=== PATIENT | male | born 1940 | race Caucasian/White ===

== ENCOUNTER → 2021-09-02 12:27 | Outpatient (BNVA) | payer MEDICARE, OTHER, SELFPAY | PROVIDERS: PCP Physician Assistant; Visit Provider Internal Medicine | DX: I25.10 Atherosclerotic heart disease of native coronary artery without angina pectoris (principal) | CPT/HCPCS: 93005; 99212 ==

== ENCOUNTER → 2022-08-17 09:08 | Outpatient (REF) | payer MEDICARE, OTHER, SELFPAY ==
--- NOTE | 2022-08-17 09:11 | CA_ITS ---
Transthoracic Echocardiogram Patient (Last, First, Middle): Todd Chinchilla, Gender: Male Date of : 1940 Age: 81 Procedure Date: 08/17/2022 Procedure Type: Transthoracic Echocardiogram Location: OP Height: 180.34 cm Weight: 81.65 kg BSA: 2.02 m2 Heart Rate: 88 bpm BP: 100 / 65 mmHg Dish Up Person: MARIIA Referring MD: Avery Andre MD Symptoms: I25.10 - Atherosclerotic heart disease of [place] coronary... Study Quality: Adequate ECG Rhythm: Atrial Fibrillation Conclusions: - The left ventricular systolic function is mildly decreased. The visually estimated ejection fraction is between 45-50%. - There is mild calcification of the aortic valve. - No obvious valvular pathology seen on this study. Findings Left Ventricle Normal left ventricular cavity size. The left ventricular systolic function is mildly decreased. The visually estimated ejection fraction is between 45 50%. Diastolic function is indeterminate on the basis of available data. There is mild septal and mild basal asymmetric hypertrophy. Right Ventricle Normal right ventricular cavity size. There is mildly decreased right ventricular systolic function. Atria Both atria are normal in size. Aortic Valve There is mild calcification of the aortic valve. There is no aortic valve stenosis. There is no aortic valve regurgitation. Mitral Valve The mitral valve appears normal. There is trace mitral valve regurgitation. There is no mitral valve stenosis. Pulmonic Valve The pulmonic valve is likely normal. Tricuspid Valve There is trace tricuspid valve regurgitation. There is no evidence of pulmonary hypertension. Great Vessels The asc aorta is normal in size. Venous The inferior vena cava is normal in size and collapses greater than 50% with inspiration. Pericardium/Pleural There is no evidence of pericardial effusion. Prior Study Comparison No prior study available for comparison. Recommendations, Care & Conclusions No obvious valvular pathology seen on this study. Measurements 2D Linear Measurements IVSd: 1.11 0.6-0.9/0.6-1.0 cm LVIDd: 4.52 3.9-5.3/4.2-5.9 cm LVIDd Index: 2.24 2.4-3.2/2.2-3.1 cm/m2 LVIDs: 3.41 2.0-3.6 cm LVPWd: 0.85 0.7-1.1 cm LA Diam: 3.40 2.7-3.8/3.0-4.0 cm LAIDs Index: 1.68 1.5-2.3 cm/m2 LV Mass: 187.34 67-162/88-224 g LV Mass Index: 92.74 43-95/49-115 g/m2 LVOT Diam: 2.00 3.0+(-)1.3 cm 2D Systolic Function EF 4C: 54.40 >55% EF 2C: 38.20 >55% EF BiP: 47.50 >55% Mitral Valve MV Pk E: 0.69 MV Decel Time: 227.00 PHT: 66.00 MVA PHT: 3.33 Decel Rawlins: 3.02 Aortic Valve AoV Pk Tao: 0.87 AoV Mn Tao: 0.63 AoV VTI: 0.14 AoV Pk Grad: 3.00 Aov Mn Grad: 2.00 EMILIANA Cont.VTI: 2.92 LVOT LVOT Pk Tao: 0.70 LVOT Mn Tao: 0.48 LVOT VTI: 0.13 LVOT Pk Grad: 2.00 LVOT Mn Grad: 1.00 LVOT Diam: 2.00 LVOT Area: 3.14 Diastolic Function MV Pk E: 0.69 Right Ventricle TAPSE (mm): 13.50 TVS' Tao: 10.10 Tricuspid Valve TR Pk Tao: 1.63 TR Pk Grad: 11.00 RA Press: 3.00 RVSP: 14.00 Great Vessels Aorta Sinus of Valsalva: 3.50 2.0-3.5 cm Ao Asc: 3.70 2.1-3.4 cm Pulmonary Valve PV Pk Tao: 0.87 Peak PV Grad: 3.00 Updated in Other Vendor System with Status of Final Avery Andre MD electronically signed on 08/18/2022 11:13:48 AM with status of Final
== END ==
LOC: HO.CARD 09:08
PROVIDERS: PCP Family Medicine; Visit Provider Internal Medicine
DX: I25.10 Atherosclerotic heart disease of native coronary artery without angina pectoris (principal)
CPT/HCPCS: 93306

== ENCOUNTER → 2022-08-25 07:13 | Outpatient (REF) | payer MEDICARE, OTHER, SELFPAY ==
--- NOTE | 2022-08-25 07:15 | HM_ITS ---
* Total monitoring time 3 days and 6 hours. * Underlying rhythm is sinus and atrial fibrillation. About 39% the time, rhythm was atrial fibrillation. * While in atrial fibrillation, rapid rates up to 152/Min. Otherwise, minimum rate 52/Min. * No significant pauses heart blocks. * Occasional ventricular ectopy. * No symptoms in dairy. MTDD
== END ==
LOC: HO.CARD 07:13
PROVIDERS: PCP Family Medicine; Visit Provider Internal Medicine
DX: I48.91 Unspecified atrial fibrillation (principal)
CPT/HCPCS: 93242

== ENCOUNTER 2022-09-07 13:05 | Outpatient (REF) | payer MEDICARE, OTHER, SELFPAY ==
[2022-09-07 14:33] LABS: Hematocrit 39.3 % (42.0-52.0); Hemoglobin 12.7 g/dl (14.0-18.0); Mean Corpuscular HGB Conc 32.3 g/dl (31.0-36.0); Mean Corpuscular Hemoglobin 32.2 pg (27.0-33.0); Mean Corpuscular Volume 99.5 fL (80.0-98.0); Mean Platelet Volume 10.6 fL (9.4-12.4); Platelet Count 298 X10*3/uL (160-400); Red Blood Count 3.95 X10*6/uL (4.60-5.80); Red Cell Distribution Width 12.7 % (11.0-16.0); White Blood Count 5.7 X10*3/uL (4.8-10.8)
[2022-09-07 14:37] LABS: Prothrombin Time 11.4 SEC (10.0-13.1)
[2022-09-07 14:53] LABS: Alanine Aminotransferase 21 U/L (0-40); Albumin Level 4.3 g/dL (3.5-5.0); Alkaline Phosphatase 59 U/L (39-117); Anion Gap 12 (12-20); Aspartate Amino Transferase 24 U/L (5-37); Bilirubin Total 0.5 mg/dL (0.0-1.0); Blood Urea Nitrogen 15 mg/dL (9-16); Calcium 9.2 mg/dL (8.4-10.2); Carbon Dioxide 28 mmol/L (22-29); Chloride 104 mmol/L (96-108); Estimated Glomerular Filt Rate > 60; Glucose Random 80 mg/dL (60-115); Potassium 4.3 mmol/L (3.3-5.1); Sodium 140 mmol/L (135-145); Total Protein 6.4 g/dL (6.5-8.0)
== END 2022-09-07 13:06 | disposition home or self-care (01) ==
LOC: HO.LAB 13:05
PROVIDERS: PCP Family Medicine; Visit Provider Internal Medicine
DX: I48.0 Paroxysmal atrial fibrillation (principal); I42.9 Cardiomyopathy, unspecified; I25.10 Atherosclerotic heart disease of native coronary artery without angina pectoris; Z79.899 Other long term (current) drug therapy
CPT/HCPCS: 36415; 80053; 85027; 85610; 93005; 99212

== ENCOUNTER → 2022-10-29 10:39 | Outpatient (REF) | payer MEDICARE, OTHER, SELFPAY ==
--- NOTE | 2022-10-29 10:43 | HM_ITS ---
Conclusion: 1. Patient was monitor for total period of 3 days and 2 hours 2. Baseline was normal sinus rhythm with average heart of 65 beats per minute 3. No significant pauses or bradycardia noted 4. Total of 1905 PVCs accounting for 0.70 % of total beats accounting for occasional PVCs 5. Total of 391 PACs account for occasional PACs 6. No significant tachyarrhythmias noted 7. No patient reported events MTDD
== END ==
LOC: HO.CARD 10:39
PROVIDERS: Visit Provider Internal Medicine
DX: I48.0 Paroxysmal atrial fibrillation (principal)
CPT/HCPCS: 93242

== ENCOUNTER → 2022-12-14 12:16 | Outpatient (BNVA) | payer MEDICARE, OTHER, SELFPAY | PROVIDERS: PCP Family Medicine; Referring Provider Family Medicine; Visit Provider Internal Medicine | DX: I25.10 Atherosclerotic heart disease of native coronary artery without angina pectoris (principal); I48.0 Paroxysmal atrial fibrillation; I42.9 Cardiomyopathy, unspecified; Z79.01 Long term (current) use of anticoagulants; Z79.899 Other long term (current) drug therapy | CPT/HCPCS: 99212 ==

== ENCOUNTER → 2023-05-23 07:39 | Outpatient (REF) | payer MEDICARE, OTHER, SELFPAY ==
--- NOTE | ~2023-05-23 | NM_ITS ---
EXERCISE MYOCARDIAL PERFUSION STUDY INDICATION: Coronary disease, assess for ischemia TECHNIQUE: The patient was brought in for an exercise perfusion study on 05/23/2023. Patient performed exercise as per Urban protocol and was injected 30 mCi of sestamibi once target heart rate was achieved. Images were obtained using the SPECT gamma camera interlaced with the gating device. Images were obtained in supine position. Resting perfusion study was performed on 05/26/2023. Patient was administered 30 mCi of sestamibi intravenously at rest. Images were then obtained in supine position. Images were processed with the software and compared side to side in short axis, horizontal long axis and vertical long axis views. Total DLP 72mGy-cm. FINDINGS: Raw images were reviewed. The stress perfusion study showed no significant perfusion abnormality. Both uncorrected as well as CT attenuation corrected images were reviewed. Gating not performed during stress due to question of atrial fibrillation. Resting study shows no significant perfusion abnormality. Gating at rest reveals normal wall motion with ejection fraction at 64%. The findings are consistent with no clear reversible or fixed perfusion defects. KS/KS cardiolite stress test IMPRESSION: 1. Myocardial perfusion imaging study shows likely normal myocardial perfusion. 2. Gated LVEF is 64% during rest. Gating not performed during stress due to atrial fibrillation. EKG component of the test reported separately.
--- NOTE | 2023-05-23 07:42 | CA_ITS ---
Acquisition Time: 2023-05-23 08:47:49 Total Exercise Time: 00:09:48 Test Indications: CAD AFIB Medications: ELIQUIS ATORVASTATIN METOPROLOL Protocol: RADHIKA Max HR: 148 BPM 105% of Pred: 140 BPM Max BP: 154/054 mmHG Max Work Load: 11.4 METS Exercise stress test exercise 9 min 48 sec of Radhika protocol achieving 100% MPHR, mild SOB, no chest discomfort, with isolated PVCs, with normotensive response to exercise, with EKG changes that meet criteria for ischemia: V4-V6. Nuclear images pending. Test reviewed with Dr. Andre. Referred By: Avery Andre Overread By: MELANIE MEYER
--- NOTE | 2023-05-23 07:42 | HM_ITS ---
* Total monitoring time 3 days. * Underlying rhythm is sinus. Average ventricular rate 65/Min. Range 52 to 93/Min. * Occasional supraventricular ventricular ectopy with minimal burden. * Mobitz type 1 second-degree heart block noted. Nighttime as well as during the day. * No significant pauses greater than 2.5 seconds. * No patient markers or events in diary. MTDD
--- NOTE | 2023-05-23 07:42 | CA_ITS ---
Transthoracic Echocardiogram Amended Patient (Last, First, Middle): Todd Chinchilla, Gender: Male Date of : 1940 Age: 82 Procedure Date: 05/23/2023 Procedure Type: Transthoracic Echocardiogram Location: OP Height: 182.88 cm Weight: 81.65 kg BSA: 2.04 m2 Heart Rate: 54 bpm BP: 90 / 60 mmHg Bulb Weeder: MARIIA Referring MD: Avery Andre MD Symptoms: I42.9 - Cardiomyopathy, unspecified Study Quality: Adequate ECG Rhythm: Bradycardia Conclusions: - The left ventricular systolic function is low normal. The visually estimated ejection fraction is between 50-55%. - No obvious valvular pathology seen on this study. Findings Left Ventricle Normal left ventricular cavity size. The left ventricular systolic function is low normal. The visually estimated ejection fraction is between 50-55%. There is no evidence of regional wall motion abnormalities. Diastolic function is normal for age. There is mild septal asymmetric hypertrophy. LV peak GLS -20.2%. Right Ventricle Normal right ventricular cavity size and systolic function. Atria Both atria are normal in size. Aortic Valve There is mild calcification of the aortic valve. There is no aortic valve stenosis. There is no aortic valve regurgitation. Mitral Valve The mitral valve appears normal. There is mild mitral annular calcification. There is trace mitral valve regurgitation. There is no mitral valve stenosis. Pulmonic Valve The pulmonic valve is likely normal. Tricuspid Valve Normal tricuspid valve structure. There is no tricuspid valve regurgitation. There is no evidence of pulmonary hypertension. Great Vessels The asc aorta is normal in size. Venous The inferior vena cava is normal in size and collapses greater than 50% with inspiration. Pericardium/Pleural There is no evidence of pericardial effusion. Prior Study Comparison Changes noted compared to prior study dated: 08/17/2022. see comment on wall motion. Recommendations, Care & Conclusions No obvious valvular pathology seen on this study. Measurements 2D Linear Measurements IVSd: 1.09 0.6-0.9/0.6-1.0 cm LVIDd: 4.53 3.9-5.3/4.2-5.9 cm LVIDd Index: 2.22 2.4-3.2/2.2-3.1 cm/m2 LVIDs: 3.30 2.0-3.6 cm LVPWd: 0.92 0.7-1.1 cm LA Diam: 3.70 2.7-3.8/3.0-4.0 cm LAIDs Index: 1.81 1.5-2.3 cm/m2 LV Mass: 194.37 67-162/88-224 g LV Mass Index: 95.28 43-95/49-115 g/m2 LVOT Diam: 2.00 3.0+(-)1.3 cm 2D Volumes LA Vol: 20.50 2D Systolic Function EF 4C: 55.60 >55% EF 2C: 64.80 >55% EF BiP: 59.30 >55% Mitral Valve MV Pk E: 0.59 MV PK A: 0.48 MV Decel Time: 196.00 E/A: 1.20 E'Lateral: 9.57 E'Medial: 5.66 E/E' Med: 10.40 E/E' Lat: 6.10 PHT: 57.00 MVA PHT: 3.86 Decel Buchanan: 3.00 Aortic Valve AoV Pk Tao: 1.18 AoV Mn Tao: 0.87 AoV VTI: 0.31 AoV Pk Grad: 6.00 Aov Mn Grad: 3.00 EMILIANA Cont.VTI: 2.07 LVOT LVOT Pk Tao: 0.79 LVOT Mn Tao: 0.60 LVOT VTI: 0.21 LVOT Pk Grad: 2.00 LVOT Mn Grad: 2.00 LVOT Diam: 2.00 LVOT Area: 3.14 Diastolic Function MV Pk E: 0.59 MV Pk A: 0.48 E/A: 1.20 E'Medial: 5.66 E/E' Med: 10.40 E' Laterial: 9.57 E/E' Lat: 6.10 Right Ventricle TAPSE (mm): 22.60 Tricuspid Valve RA Press: 3.00 Great Vessels Aorta Sinus of Valsalva: 3.30 2.0-3.5 cm Ao Asc: 3.50 2.1-3.4 cm Pulmonary Valve PV Pk Tao: 0.90 Peak PV Grad: 3.00 Updated in Other Vendor System with Status of Final Avery Andre MD electronically signed on 05/31/2023 12:19:35 PM with status of Final
== END ==
LOC: HO.CARD 07:39
PROVIDERS: PCP Family Medicine; Visit Provider Internal Medicine
DX: R07.2 Precordial pain (principal); I48.0 Paroxysmal atrial fibrillation; I25.10 Atherosclerotic heart disease of native coronary artery without angina pectoris; I42.9 Cardiomyopathy, unspecified
CPT/HCPCS: 78452; 93017; 93242; 93306; 93356; A9500

== ENCOUNTER 2023-06-20 13:39 | Outpatient (AMB) | payer MEDICARE, OTHER, SELFPAY ==
--- NOTE | 2023-06-20 13:58 | A.OFFVIS_ITS ---
Intake Vital Signs 06/20/23 13:59 Height 5 ft 11.5 in Weight 179 lb 0.246 oz BMI 24.6 BP 90/60 Blood Pressure Location Lt brachial Position Sitting Intake Visit Reasons: 6 mth f/up echo/ stress/ holter Intake Note: 6 month follow up testing Assistant Guest Services Manager Required: No Accompanied by: Spouse Allergies No Known Allergies Allergy (Verified 06/20/23 14:00) Medication List - Last Reconciled 06/20/23 by Avery Andre MD apixaban (Eliquis) 5 mg PO BID 90 days atorvastatin 80 mg PO DAILY dorzolamide-timolol 22.3-6.8 mg/mL 1 drp ophthalmic (eye) BID latanoprost 0.005% 1 drp ophthalmic (eye) QPM metoprolol succinate ER (Toprol XL) 25 mg PO DAILY HPI HPI Comments History of Present Illness Details Todd returns for follow-up regarding coronary artery disease and atrial fibrillation. Due to coronary disease/CABG in daughter, he underwent further workup. Based on calcium scoring CT, he does have underlying coronary disease. Recently, came for echocardiogram but noted to be in atrial fibrillation that study. Then underwent Holter that clearly shows atrial fibrillation with rapid rate. Then started beta-blockers and Eliquis. Overall, he is doing good. No complaints like angina or shortness of breath or palpitations or in fact anything cardiac sounding. Able to walk 5 miles regularly with no issues. No limitations whatsoever. [facility] Medical History (Updated 09/07/22 @ 13:28 by Avery Andre MD) Atherosclerotic cardiovascular disease Surgical History History of right inguinal hernia repair History of shoulder surgery Hx of eye surgery Family History Father Alzheimer disease Mother Stroke Social History Alcohol intake: current Alcohol intake frequency: a few times a month Patient Tobacco Use Status: Never used Tobacco Review of Systems Const Denies weakness ENT Denies dizziness Card Denies chest pain, Denies chest pain with activity, Denies syncope, Denies rapid heart rate, Denies pedal edema, Denies edema, Denies leg edema, Denies lightheadedness, Denies palpitations, Denies dyspnea, Denies dyspnea on exertion and Denies orthopnea Resp Denies cough, Denies dyspnea and Denies dyspnea on exertion GI Denies hematochezia and Denies change in stool character Musc Denies abnormal gait, Denies muscle cramps, Denies muscle weakness, Denies numbness, Denies radiating pain into limb and Denies tingling Neuro Denies abnormal gait, Denies dizziness, Denies syncope, Denies numbness, Denies tingling and Denies weakness Endo Denies palpitations Physical Exam Vital Signs: Last Vital Signs BP 90/60 06/20/23 13:59 BMI result Body Mass Index 24.6 Const General: comfortable and no acute distress Orientation/consciousness: patient oriented x3 HEENT Other: Unremarkable Head: Yes normal to inspection Neck Neck: Yes normal visual inspection Chest Chest palpation & inspection: normal inspection of the chest Resp Auscultation: clear to auscultation bilaterally Cardio Palpation: normal PMI Heart sounds: S1 normal heart sound present, S2 normal heart sound present, no gallops, no murmurs and no rubs GI Palpation (GI): Soft to palpation Back/Spine/Pelvis Other: unremarkable Skin General skin exam: no rashes or lesions noted Neuro General: patient oriented x3 Extrem General: Yes normal to inspection Psych Mental Status: mental status grossly normal Assessment & Plan Assessment & Plan (1) Atherosclerotic cardiovascular disease: Code(s): I25.10 - Atherosclerotic heart disease of [place] coronary artery without angina pectoris Plan: Cardiac studies reviewed. Calcium scoring CT-total calcium score 1757; LAD 466; circumflex 149; right coronary artery 1142. In the most recent exercise stress test from last month, able to exercise for 9 minutes and 48 seconds on Urban protocol and reached 11.4 Mets. No chest discomfort. There was EKG evidence of ischemia but perfusion imaging was completely unremarkable. In the echocardiogram, LVEF 50-55%. Peak global longitudinal systolic strain within normal range. No significant valvular issues. Overall, he has got a very high level of physical activity and no symptoms. Hence continue medications. Continue beta-blockers/statins. Last LDL 67 mg/dL.? HDL 76 mg/dL and triglycerides 40 mg/dL. (2) PAF (paroxysmal atrial fibrillation): Code(s): I48.0 - Paroxysmal atrial fibrillation Plan: In the Holter, underlying rhythm is sinus. No evidence of atrial fibrillation. Continue beta-blockers. Continue Eliquis. (3) Cardiomyopathy: Code(s): I42.9 - Cardiomyopathy, unspecified Plan: Echocardiogram with LVEF of 50-55%. Clinically, no heart failure symptoms or signs. Will continue to monitor. Recheck in 6 months. Coding Level of Care Code Est Pt Level 4 (54626) Diagnoses Atherosclerotic cardiovascular disease I25.10 PAF (paroxysmal atrial fibrillation) I48.0 Cardiomyopathy I42.9
[2023-06-20 13:59] VITALS: BP 90/60; BMI 24.6
== END 2023-06-20 14:14 | disposition home or self-care (01) ==
PROVIDERS: Visit Provider Internal Medicine
DX: I25.10 Atherosclerotic heart disease of native coronary artery without angina pectoris (principal); I48.0 Paroxysmal atrial fibrillation; I42.9 Cardiomyopathy, unspecified
CPT/HCPCS: 99214

== ENCOUNTER → 2023-06-20 13:39 | Outpatient (BNVA) | payer MEDICARE, OTHER, SELFPAY | PROVIDERS: Visit Provider Internal Medicine | DX: I25.10 Atherosclerotic heart disease of native coronary artery without angina pectoris (principal); I48.0 Paroxysmal atrial fibrillation; I42.9 Cardiomyopathy, unspecified | CPT/HCPCS: 99212 ==

== ENCOUNTER 2023-08-25 14:55 | Outpatient (REF) | payer MEDICARE, OTHER, SELFPAY ==
--- NOTE | ~2023-08-25 | MR_ITS ---
EXAMINATION: MRI BRAIN WITHOUT CONTRAST CLINICAL INFORMATION: Proximal atrial fibrillation. COMPARISON: No relevant prior imaging. TECHNIQUE: Multiplanar MR imaging of the brain was performed without contrast. FINDINGS: There are scattered nonspecific foci of T2 FLAIR signal hyperintensity within the periventricular white matter. No acute territorial infarct. No pathological magnetic susceptibility artifact. Intracranial vascular flow voids are maintained. There is no intracranial mass effect or midline shift. No abnormal extra-axial collection. Lateral and third ventricles are normal. No hydrocephalus. Midline structures including the cervicomedullary junction are normal. No acute bone marrow signal changes. There is no mastoid or middle ear effusion. Trivial mucosal thickening primarily affecting the ethmoid air cells. Globes and orbits are symmetric. MR/MR head/brain wo con IMPRESSION: There are scattered chronic small vessel ischemic changes within the periventricular white matter. Otherwise unremarkable examination. No evidence of acute territorial infarct or hemorrhage.
== END 2023-08-25 14:56 | disposition home or self-care (01) ==
LOC: HO.MRI 14:55
PROVIDERS: PCP Family Medicine; Visit Provider Internal Medicine
DX: I48.0 Paroxysmal atrial fibrillation (principal); R42 Dizziness and giddiness; R26.9 Unspecified abnormalities of gait and mobility
CPT/HCPCS: 70551

== ENCOUNTER → 2023-09-06 09:06 | Outpatient (BNVA) | payer MEDICARE, OTHER, SELFPAY | PROVIDERS: PCP Family Medicine; Visit Provider Internal Medicine ==

== ENCOUNTER 2023-12-08 13:32 | Outpatient (AMB) | payer MEDICARE, OTHER, SELFPAY ==
--- NOTE | 2023-12-08 13:44 | MHC.OFFVIS ---
Intake Vital Signs 12/08/23 13:46 Height 5 ft 9 in Weight 184 lb 11.958 oz BMI 27.3 BP 92/54 L Blood Pressure Location Lt brachial Position Sitting Intake Visit Reasons: 6 mth fu Intake Note: 6 month follow up Accompanied by: Self / Same As Patient Allergies No Known Allergies Allergy (Verified 12/08/23 13:46) Medication List - Last Reconciled 12/08/23 by Avery Andre MD apixaban (Eliquis) 5 mg PO BID atorvastatin 80 mg PO DAILY dorzolamide-timolol 22.3-6.8 mg/mL 1 drp ophthalmic (eye) BID dronedarone (Multaq) 400 mg PO BID 90 days latanoprost 0.005% 1 drp ophthalmic (eye) QPM HPI HPI Comments History of Present Illness Details Todd returns for follow-up regarding coronary artery disease and atrial fibrillation. Due to coronary disease/CABG in daughter, he underwent further workup. Based on calcium scoring CT, he does have underlying coronary disease. Few months ago, he came for echocardiogram but noted to be in atrial fibrillation during that study. Then underwent Holter that clearly shows atrial fibrillation with rapid rate. Then started beta-blockers and Eliquis. However, his blood pressure has been running quite low and hence he is rather on Multaq these days. No longer on beta-blockers. Overall, doing good. Continues to be very active, hiking extra with absolutely no issues. No cardiac symptoms at all. [facility] Medical History (Updated 08/25/23 @ 11:26 by Mague Giles RN) Atherosclerotic cardiovascular disease Surgical History History of right inguinal hernia repair History of shoulder surgery Hx of eye surgery Family History Father Alzheimer disease Mother Stroke Social History Alcohol intake: current Alcohol intake frequency: a few times a month Patient Tobacco Use Status: Never used Tobacco Review of Systems Const Denies weakness ENT Denies dizziness Card Denies chest pain, Denies chest pain with activity, Denies syncope, Denies rapid heart rate, Denies pedal edema, Denies edema, Denies leg edema, Denies lightheadedness, Denies palpitations, Denies dyspnea, Denies dyspnea on exertion and Denies orthopnea Resp Denies cough, Denies dyspnea and Denies dyspnea on exertion GI Denies hematochezia and Denies change in stool character Musc Denies abnormal gait, Denies muscle cramps, Denies muscle weakness, Denies numbness, Denies radiating pain into limb and Denies tingling Neuro Denies abnormal gait, Denies dizziness, Denies syncope, Denies numbness, Denies tingling and Denies weakness Endo Denies palpitations Physical Exam Vital Signs: Last Vital Signs BP 92/54 L 12/08/23 13:46 BMI result Body Mass Index 27.3 Const General: comfortable and no acute distress Orientation/consciousness: patient oriented x3 HEENT Other: Unremarkable Head: Yes normal to inspection Neck Neck: Yes normal visual inspection Chest Chest palpation & inspection: normal inspection of the chest Resp Auscultation: clear to auscultation bilaterally Cardio Palpation: normal PMI Heart sounds: S1 normal heart sound present, S2 normal heart sound present, no gallops, Murmur heart sound present systolic I/ and at the right sternal border and no rubs GI Palpation (GI): Soft to palpation Back/Spine/Pelvis Other: unremarkable Skin General skin exam: no rashes or lesions noted Neuro General: patient oriented x3 Extrem General: Yes normal to inspection Psych Mental Status: mental status grossly normal Office Procedures EKG Details: EKG with sinus bradycardia at 58/Min; no significant ST-T changes and otherwise unremarkable. [place]. [id number], Complete Assessment & Plan Assessment & Plan (1) Atherosclerotic cardiovascular disease: Code(s): I25.10 - Atherosclerotic heart disease of [place] coronary artery without angina pectoris Plan: Cardiac studies reviewed. Calcium scoring CT-total calcium score 1757; LAD 466; circumflex 149; right coronary artery 1142. In the most recent exercise stress test from 2022, able to exercise for 9 minutes and 48 seconds on Urban protocol and reached 11.4 Mets. No chest discomfort. There was EKG evidence of ischemia but perfusion imaging was completely unremarkable. In the echocardiogram, LVEF 50-55%. Peak global longitudinal systolic strain within normal range. No significant valvular issues. Overall, he has got a very high level of physical activity and no symptoms. Hence continue medications. Continue beta-blockers/statins. Last LDL 67 mg/dL.? HDL 76 mg/dL and triglycerides 40 mg/dL. (2) PAF (paroxysmal atrial fibrillation): Code(s): I48.0 - Paroxysmal atrial fibrillation Plan: Due to low blood pressure, can not take beta-blockers. Hence continue Multaq. EKGs well within normal limits. Continue anticoagulation without changes. (3) Cardiomyopathy: Code(s): I42.9 - Cardiomyopathy, unspecified Plan: Echocardiogram with LVEF of 50-55%. In 2021, 45-50%. Clinically, no heart failure symptoms or signs. Will continue to monitor. Coding Level of Care Code Est Pt Level 4 (33163) Diagnoses Atherosclerotic cardiovascular disease I25.10 PAF (paroxysmal atrial fibrillation) I48.0 Cardiomyopathy I42.9 CPT Codes EKG - CPT: 94983-[id number], Complete ([id number])
[2023-12-08 13:46] VITALS: BP 92/54; BMI 27.3
== END 2023-12-08 14:10 | disposition home or self-care (01) ==
PROVIDERS: PCP Family Medicine; Visit Provider Internal Medicine
DX: I25.10 Atherosclerotic heart disease of native coronary artery without angina pectoris (principal); I48.0 Paroxysmal atrial fibrillation; I42.9 Cardiomyopathy, unspecified
CPT/HCPCS: 93010; 99214

== ENCOUNTER → 2023-12-08 13:32 | Outpatient (BNVA) | payer MEDICARE, OTHER, SELFPAY | PROVIDERS: PCP Family Medicine; Visit Provider Internal Medicine | DX: I25.10 Atherosclerotic heart disease of native coronary artery without angina pectoris (principal); I48.0 Paroxysmal atrial fibrillation; I42.9 Cardiomyopathy, unspecified | CPT/HCPCS: 93005; 99212 ==

== ENCOUNTER 2024-03-14 13:31 | Outpatient (AMB) | payer MEDICARE, OTHER, SELFPAY ==
--- NOTE | 2024-03-14 13:52 | AM.OFFVISNUR ---
Intake Intake Visit Reasons: 3 month ekg Allergies No Known Allergies Allergy (Verified 12/08/23 13:46) Nursing Note PT is here for Nurse Visit with EKG PT is taking Dronedarone (Multaq) 400 mg PO BID PT has no symptoms and is doing good EKG is left on Dr WILHELM desk for review Office Procedures EKG [id number], Complete Coding CPT Codes EKG - CPT: 35091-[id number], Complete ([id number])
== END 2024-03-14 16:10 | disposition home or self-care (01) ==
PROVIDERS: PCP Family Medicine; Visit Provider Internal Medicine
DX: R00.1 Bradycardia, unspecified (principal)
CPT/HCPCS: 93010

== ENCOUNTER → 2024-03-14 13:31 | Outpatient (BNVA) | payer MEDICARE, OTHER, SELFPAY | PROVIDERS: PCP Family Medicine; Visit Provider Internal Medicine | DX: R00.1 Bradycardia, unspecified (principal) | CPT/HCPCS: 93005 ==

== ENCOUNTER 2024-06-12 13:04 | Outpatient (AMB) | payer MEDICARE, OTHER, SELFPAY ==
--- NOTE | 2024-06-12 13:33 | MHC.OFFVIS ---
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 Due to coronary disease/CABG in daughter, he underwent further workup. Based on calcium scoring CT, he does have underlying coronary disease. Then diagnosed with atrial fibrillation when he came for an echocardiogram. Holter also confirmed the same. Was put on beta-blockers but could not tolerate because of low blood pressures. Then switched over to Multaq that he is tolerating fine. Also on Eliquis. Overall, very active with no limitations. He states he is walking 4 miles a day and doing good. High aches a lot. Absolutely no cardiac symptoms. Never had angina. He states his [employer] watch is not showing any alerts for atrial fibrillation. [facility] Medical History (Updated 08/25/23 @ 11:26 by Mague Giles RN) Atherosclerotic cardiovascular disease Surgical History History of right inguinal hernia repair History of shoulder surgery Hx of eye surgery Family History Father Alzheimer disease Mother Stroke Social History Alcohol intake: current Alcohol intake frequency: a few times a month Patient Tobacco Use Status: Never used Tobacco Review of Systems Const Denies chills, Denies fatigue, Denies fever(s), Denies weight gain and Denies weight loss ENT Denies dizziness Card Denies chest pain, Denies leg edema, Denies lightheadedness, Denies palpitations, Denies dyspnea on exertion, Denies orthopnea and Denies other Resp Denies cough and Denies dyspnea on exertion GI Denies hematochezia and Denies change in stool character Musc Denies abnormal gait, Denies muscle weakness, Denies numbness, Denies radiating pain into limb and Denies tingling Neuro Denies abnormal gait, Denies dizziness, Denies numbness and Denies tingling Endo Denies fatigue and Denies palpitations Physical Exam Vital Signs: Last Vital Signs Pulse 52 06/12/24 13:39 BP 112/56 L 06/12/24 13:39 BMI result Body Mass Index 26.2 Const General: comfortable and no acute distress Orientation/consciousness: patient oriented x3 HEENT Other: Unremarkable Head: Yes normal to inspection Neck Neck: Yes normal visual inspection Chest Chest palpation & inspection: normal inspection of the chest Resp Auscultation: clear to auscultation bilaterally Cardio Palpation: normal PMI Heart sounds: S1 normal heart sound present, S2 normal heart sound present, no gallops, no murmurs and no rubs GI Palpation (GI): Soft to palpation Back/Spine/Pelvis Other: unremarkable Skin General skin exam: no rashes or lesions noted Neuro General: patient oriented x3 Extrem General: Yes normal to inspection Psych Mental Status: mental status grossly normal Office Procedures EKG Details: EKG with sinus bradycardia at 52/Min; no significant ST-T changes; [place] prolongation to 204 millisecond; [place]. [id number], Complete Assessment & Plan Assessment & Plan (1) Atherosclerotic cardiovascular disease: Code(s): I25.10 - Atherosclerotic heart disease of [place] coronary artery without angina pectoris Category: Medical Plan: Cardiac studies reviewed. Calcium scoring CT in the past-total calcium score 1757; LAD 466; circumflex 149; right coronary artery 1142. In the most recent exercise stress test from 2022, able to exercise for 9 minutes and 48 seconds on Urban protocol and reached 11.4 Mets. No chest discomfort. There was EKG evidence of ischemia but perfusion imaging was completely unremarkable. In the echocardiogram, LVEF 50-55%. Peak global longitudinal systolic strain within normal range. No significant valvular issues. Overall, established coronary disease but no symptoms and high exercise capacity at baseline. Hence we will continue medical therapy as per current recommendations. In case he develops any angina, will need a diagnostic catheterization and we discussed today. Otherwise, with regard to medications, continue statins. Cannot tolerate beta-blockers because of low blood pressure. Last LDL 67 mg/dL.? HDL 76 mg/dL and triglycerides 40 mg/dL. (2) PAF (paroxysmal atrial fibrillation): Code(s): I48.0 - Paroxysmal atrial fibrillation Category: Medical Plan: Due to low blood pressure, cannot take beta-blockers. Hence continue Multaq. EKG stable. Continue anticoagulation. Per patient, [employer] is not showing any alerts for atrial fibrillation. (3) Cardiomyopathy: Code(s): I42.9 - Cardiomyopathy, unspecified Category: Medical Plan: Echocardiogram with LVEF of 50-55%. In 2021, 45-50%. Clinically, no heart failure symptoms or signs. May continue to monitor clinically. If necessary, may repeat echocardiogram in the future. Plan To return for EKG in 3 months for Multaq. Coding Level of Care Code Est Pt Level 4 (03080) Diagnoses Atherosclerotic cardiovascular disease I25.10 PAF (paroxysmal atrial fibrillation) I48.0 Cardiomyopathy I42.9 CPT Codes EKG - CPT: 89361-[id number], Complete ([id number])
[2024-06-12 13:39] VITALS: BP 112/56; PULSE 52; BMI 26.2
== END 2024-06-12 13:56 | disposition home or self-care (01) ==
PROVIDERS: PCP Family Medicine; Visit Provider Internal Medicine
DX: I25.10 Atherosclerotic heart disease of native coronary artery without angina pectoris (principal); I48.0 Paroxysmal atrial fibrillation; I42.9 Cardiomyopathy, unspecified
CPT/HCPCS: 93010; 99214

== ENCOUNTER → 2024-06-12 13:04 | Outpatient (BNVA) | payer MEDICARE, OTHER, SELFPAY | PROVIDERS: PCP Family Medicine; Visit Provider Internal Medicine | DX: I25.10 Atherosclerotic heart disease of native coronary artery without angina pectoris (principal); I48.0 Paroxysmal atrial fibrillation; I42.9 Cardiomyopathy, unspecified; R00.1 Bradycardia, unspecified | CPT/HCPCS: 93005; 99212 ==

== ENCOUNTER 2024-09-13 09:42 | Outpatient (AMB) | payer MEDICARE, OTHER, SELFPAY ==
--- NOTE | 2024-09-13 09:45 | AM.OFFVISNUR ---
Intake Visit Reasons: ekg 3 mth Allergies No Known Allergies Allergy (Verified 12/08/23 13:46) Nursing Note pt is here for nurse visit with ekg pt is on dronedaron 400 mg PO BID pt feels good and has no symptoms ekg is being reviewed by Dr WILHELM Office Procedures EKG [id number], Complete
== END 2024-09-13 09:58 | disposition home or self-care (01) ==
PROVIDERS: PCP Family Medicine; Visit Provider Internal Medicine
DX: R00.1 Bradycardia, unspecified (principal)
CPT/HCPCS: 93010

== ENCOUNTER → 2024-09-13 09:42 | Outpatient (BNVA) | payer MEDICARE, OTHER, SELFPAY | PROVIDERS: PCP Family Medicine; Visit Provider Internal Medicine | DX: Z13.6 Encounter for screening for cardiovascular disorders (principal) | CPT/HCPCS: 93005 ==

== ENCOUNTER 2024-12-13 09:51 | Outpatient (AMB) | payer MEDICARE, OTHER, SELFPAY ==
--- NOTE | 2024-12-13 10:12 | A.OFFVIS_ITS ---
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 Due to coronary disease/CABG in daughter, he underwent further workup. Based on calcium scoring CT, he does have underlying coronary disease. Then diagnosed with atrial fibrillation when he came for an echocardiogram. Holter also confirmed the same. Was put on beta-blockers but could not tolerate because of low blood pressures. Then switched over to Multaq that he is tolerating fine. Also on Eliquis. He continues to walk/high extra and stays extremely active with absolutely no limitations. No cardiac symptoms. [facility] Medical History (Updated 08/25/23 @ 11:26 by Mague Giles RN) Atherosclerotic cardiovascular disease Surgical History History of right inguinal hernia repair History of shoulder surgery Hx of eye surgery Family History Father Alzheimer disease Mother Stroke Social History Alcohol intake: current Alcohol intake frequency: a few times a month Patient Tobacco Use Status: Never used Tobacco Review of Systems Const Denies chills, Denies fatigue, Denies fever(s), Denies frequent falls, Denies weakness, Denies weight gain and Denies weight loss ENT Denies dizziness Card Denies chest pain, Denies leg edema, Denies lightheadedness, Denies palpitations, Denies dyspnea and Denies dyspnea on exertion Resp Denies cough, Denies dyspnea and Denies dyspnea on exertion GI Denies hematochezia Musc Denies abnormal gait, Denies muscle weakness, Denies numbness, Denies radiating pain into limb and Denies tingling Neuro Denies abnormal gait, Denies dizziness, Denies frequent falls, Denies numbness, Denies tingling and Denies weakness Endo Denies fatigue and Denies palpitations Physical Exam Vital Signs: Last Vital Signs Pulse 50 12/13/24 10:14 BP 130/62 12/13/24 10:14 BMI result Body Mass Index 27.1 Const General: comfortable and no acute distress Orientation/consciousness: patient oriented x3 HEENT Other: Unremarkable Head: Yes normal to inspection Neck Neck: Yes normal visual inspection Chest Chest palpation & inspection: normal inspection of the chest Resp Auscultation: clear to auscultation bilaterally Cardio Palpation: normal PMI Heart sounds: S1 normal heart sound present, S2 normal heart sound present, no gallops, no murmurs and no rubs GI Palpation (GI): Soft to palpation Back/Spine/Pelvis Other: unremarkable Skin General skin exam: no rashes or lesions noted Neuro General: patient oriented x3 Extrem General: Yes normal to inspection Psych Mental Status: mental status grossly normal Office Procedures EKG Details: EKG with sinus bradycardia at 51/Min; borderline [place] prolongation to 202 milliseconds; normal corrected QT. no ischemic findings. [id number], Complete Assessment & Plan Assessment & Plan (1) Atherosclerotic cardiovascular disease: Code(s): I25.10 - Atherosclerotic heart disease of [place] coronary artery without angina pectoris Category: Medical Plan: Cardiac studies reviewed. Calcium scoring CT in the past-total calcium score 1757; LAD 466; circumflex 149; right coronary artery 1142. In the exercise stress test from 2022, able to exercise for 9 minutes and 48 seconds on Urban protocol and reached 11.4 METS. No chest discomfort. There was EKG evidence of ischemia, but perfusion imaging was completely unremarkable. In the echocardiogram, LVEF 50-55%. Peak global longitudinal systolic strain within normal range. No significant valvular issues. Overall, established coronary disease but no symptoms and high exercise capacity at baseline. Hence we will continue medical therapy as per current recommendations. In case he develops any angina, will need a diagnostic catheterization. With regard to medications, continue statins. Cannot tolerate beta-blockers because of low blood pressure. Last available LDL 67 mg/dL.? HDL 76 mg/dL and triglycerides 40 mg/dL. (2) PAF (paroxysmal atrial fibrillation): Code(s): I48.0 - Paroxysmal atrial fibrillation Category: Medical Plan: Due to low blood pressure, cannot take beta-blockers. Hence continue Multaq. EKG stable. Continue anticoagulation. Per patient, [employer] watch apparently gives information about atrial fibrillation and it had stated < 2%. Not clear what about accuracy of this information. (3) Cardiomyopathy: Code(s): I42.9 - Cardiomyopathy, unspecified Category: Medical Plan: Echocardiogram with LVEF of 50-55%. In 2021, 45-50%. Clinically, no heart failure symptoms or signs. May continue to monitor clinically. If necessary, may repeat echocardiogram in the future. Plan To return for EKG in 3 months for Multaq. Coding Level of Care Code Est Pt Level 4 (73227) Diagnoses Atherosclerotic cardiovascular disease I25.10 PAF (paroxysmal atrial fibrillation) I48.0 Cardiomyopathy I42.9 CPT Codes EKG - CPT: 45789-[id number], Complete ([id number])
[2024-12-13 10:14] VITALS: BP 130/62; PULSE 50; BMI 27.1
== END 2024-12-13 10:40 | disposition home or self-care (01) ==
PROVIDERS: PCP Family Medicine; Visit Provider Internal Medicine
DX: I25.10 Atherosclerotic heart disease of native coronary artery without angina pectoris (principal); I48.0 Paroxysmal atrial fibrillation; I42.9 Cardiomyopathy, unspecified
CPT/HCPCS: 93010; 99214

== ENCOUNTER → 2024-12-13 09:51 | Outpatient (BNVA) | payer MEDICARE, OTHER, SELFPAY | PROVIDERS: PCP Family Medicine; Visit Provider Internal Medicine | DX: I25.10 Atherosclerotic heart disease of native coronary artery without angina pectoris (principal); I48.0 Paroxysmal atrial fibrillation; I42.9 Cardiomyopathy, unspecified; R00.1 Bradycardia, unspecified | CPT/HCPCS: 93005; 99212 ==

== ENCOUNTER → 2025-03-14 09:46 | Outpatient (BNVA) | payer MEDICARE, OTHER, SELFPAY | PROVIDERS: PCP Family Medicine; Visit Provider Internal Medicine ==

== ENCOUNTER 2025-07-04 12:01 | Outpatient (AMB) | payer MEDICARE, OTHER, SELFPAY ==
--- NOTE | 2025-07-04 12:34 | A.OFFVIS_ITS ---
Vital Signs 07/04/25 12:35 Height 5 ft 9 in Weight 176 lb 5.917 oz BMI 26.0 BP 116/60 Blood Pressure Location Lt brachial Position Sitting Pulse 54 Pulse Source Monitor Intake Visit Reasons: 6m follow up Allergies No Known Allergies Allergy (Verified 12/08/23 13:46) Medication List - Last Reconciled 07/04/25 by Avery Andre MD apixaban (Eliquis) 5 mg PO BID atorvastatin 80 mg PO DAILY dorzolamide-timolol 22.3-6.8 mg/mL 1 drp ophthalmic (eye) BID dronedarone (Multaq) 400 mg PO BID latanoprost 0.005% 1 drp ophthalmic (eye) QPM HPI Comments Details: Todd returns for follow-up regarding coronary artery disease and atrial fibrillation. Due to coronary disease/CABG in daughter, he underwent further workup. Based on calcium scoring CT, he does have underlying coronary disease. Then diagnosed with atrial fibrillation when he came for an echocardiogram. Holter also confirmed the same. Was put on beta-blockers but could not tolerate because of low blood pressures. Then switched over to Multaq that he is tolerating fine. Also on Eliquis. Overall, he states he feels fine. No cardiac symptoms whatsoever. Physically active with no limitations. [facility] Medical History (Updated 08/25/23 @ 11:26 by Mague Giles RN) Atherosclerotic cardiovascular disease Surgical History History of right inguinal hernia repair History of shoulder surgery Hx of eye surgery Family History Father Alzheimer disease Mother Stroke Social History Alcohol intake: current Alcohol intake frequency: a few times a month Patient Tobacco Use Status: Never used Tobacco Review of Systems Const Denies weakness ENT Denies dizziness Card Denies chest pain, Denies chest pain with activity, Denies syncope, Denies rapid heart rate, Denies pedal edema, Denies edema, Denies leg edema, Denies lighthea dedness, Denies palpitations, Denies dyspnea, Denies dyspnea on exertion and Denies orthopnea Resp Denies cough, Denies dyspnea and Denies dyspnea on exertion GI Denies hematochezia and Denies change in stool character Musc Denies abnormal gait, Denies muscle cramps, Denies muscle weakness, Denies numbness, Denies radiating pain into limb and Denies tingling Neuro Denies abnormal gait, Denies dizziness, Denies syncope, Denies numbness, Denies tingling and Denies weakness Endo Denies palpitations Physical Exam Vital Signs: Last Vital Signs Pulse 54 07/04/25 12:35 BP 116/60 07/04/25 12:35 BMI result Body Mass Index 26.0 Const General: comfortable and no acute distress Orientation/consciousness: patient oriented x3 HEENT Other: Unremarkable Head: Yes normal to inspection Neck Neck: Yes normal visual inspection Chest Chest palpation & inspection: normal inspection of the chest Resp Auscultation: clear to auscultation bilaterally Cardio Palpation: normal PMI Heart sounds: S1 normal heart sound present, S2 normal heart sound present, no gallops, no murmurs and no rubs GI Palpation (GI): Soft to palpation Back/Spine/Pelvis Other: unremarkable Skin General skin exam: no rashes or lesions noted Neuro General: patient oriented x3 Extrem General: Yes normal to inspection Psych Mental Status: mental status grossly normal Office Procedures EKG Details: EKG with underlying sinus bradycardia at 54/Min; no ischemic changes; borderline [place] prolongation to 202 milliseconds; [place]. [id number], Complete Assessment & Plan Assessment & Plan (1) Atherosclerotic cardiovascular disease: Code(s): I25.10 - Atherosclerotic heart disease of [place] coronary artery without angina pectoris Category: Medical Plan: Cardiac studies reviewed. Calcium scoring CT in the past-total calcium score 1757; LAD 466; circumflex 149; right coronary artery 1142. In the exercise stress test from 2022, able to exercise for 9 minutes and 48 seconds on Urban protocol and reached 11.4 METS. No chest discomfort. There was EKG evidence of ischemia, but perfusion imaging was completely unremarkable. In the echocardiogram, LVEF 50-55%. Peak global longitudinal systolic strain within normal range. No significant valvular issues. Overall, established coronary disease but no symptoms and high exercise capacity at baseline. Hence we will continue medical therapy as per current recommendations. In case he develops any angina, will need a diagnostic catheterization. He remains on statins. Cannot tolerate beta-blockers because of low blood pressure. Last available LDL 67 mg/dL.? HDL 76 mg/dL and triglycerides 40 mg/dL. We will request more recent labs from PCP. (2) PAF (paroxysmal atrial fibrillation): Code(s): I48.0 - Paroxysmal atrial fibrillation Category: Medical Plan: Due to low blood pressure, cannot take beta-blockers. Hence continue Multaq. EKG stable. Continue anticoagulation. Need to request labs from PCP. (3) Cardiomyopathy: Code(s): I42.9 - Cardiomyopathy, unspecified Category: Medical Plan: Echocardiogram with LVEF of 50-55%. In 2021, 45-50%. Clinically, no heart failure symptoms or signs. May continue to monitor clinically. If necessary, may repeat echocardiogram in the future. Plan To return for EKG in 3 months for Multaq. Follow up with me in 6 months. Discussion Notes I discussed with the patient the importance of continuing his current medications, including Multaq, Eliquis, and atorvastatin, to manage his atrial fibrillation and coronary artery disease. We agreed on scheduling an EKG in three months to evaluate his heart rhythm and a follow-up visit in six months to review his overall health status. Patient was informed and verbally consented to the use of an ambient scribe for clinic note documentation during this visit. Patient Instructions: - Continue taking Multaq, Eliquis, and atorvastatin as prescribed. - Schedule an EKG in three months. - Return for a follow-up appointment in six months. Coding Level of Care Code Est Pt Level 4 (95989) Complex EM visit Add On G2211 Diagnoses Atherosclerotic cardiovascular disease I25.10 PAF (paroxysmal atrial fibrillation) I48.0 Cardiomyopathy I42.9 CPT Codes EKG - CPT: 87041-[id number], Complete ([id number])
[2025-07-04 12:35] VITALS: BP 116/60; PULSE 54; BMI 26.0
== END 2025-07-04 12:50 | disposition home or self-care (01) ==
LOC: HO.HCS 12:02
PROVIDERS: PCP Family Medicine; Visit Provider Internal Medicine
DX: I25.10 Atherosclerotic heart disease of native coronary artery without angina pectoris (principal); I48.0 Paroxysmal atrial fibrillation; I42.9 Cardiomyopathy, unspecified
CPT/HCPCS: 93010; 99214; G2211

== ENCOUNTER → 2025-07-04 12:01 | Outpatient (BNVA) | payer MEDICARE, OTHER, SELFPAY | PROVIDERS: PCP Family Medicine; Visit Provider Internal Medicine | DX: I25.10 Atherosclerotic heart disease of native coronary artery without angina pectoris (principal); I48.0 Paroxysmal atrial fibrillation; I42.9 Cardiomyopathy, unspecified; R00.1 Bradycardia, unspecified | CPT/HCPCS: 93005; 99212 ==